=== PATIENT | male | born 1960 | race Caucasian/White ===

== ENCOUNTER 2022-09-09 10:36 | Emergency (ER) | payer OTHER, SELFPAY ==
[2022-09-09 10:45] VITALS: BP 128/84; PULSE 87; RESP 18; TEMP 36.4; O2SAT 97
--- NOTE | 2022-09-09 10:57 | ED.GENADULT ---
HPI - General Adult General Chief complaint: Upper Respiratory Infection Stated complaint: Rt Mouth Pain Time Seen by Provider: 09/09/22 10:50 History of Present Illness HPI narrative: 61 y/o male presented for c/o throat pain for about 3-4 days. Pain is constant, pain 6/10 at rest, worse with swallowing. Also reports hoarse voice. Feels like something is back there. Denies choking or difficulty swallowing, or maintaining secretions. Denies known sick contacts, but states grandkids are around him often. Denies associated sinus congestion, cough, n/v/d/f/c. Not taking anything for symptoms. Hx chewing tobacco x40 years with remote smoking history. Related Data Home Medications Medication Instructions Recorded Confirmed aspirin 81 mg tablet,delayed 81 mg PO DAILY 11/12/19 09/09/22 release (Adult Aspirin Regimen) omega-3 fatty acids 1,000 mg 1,000 mg PO BID 11/12/19 09/09/22 capsule (Fish Oil Concentrate) cholecalciferol (vitamin D3) 50 50 mcg PO DAILY 06/14/22 09/09/22 mcg (2,000 unit) capsule gabapentin 100 mg capsule 200 mg PO DAILY 06/14/22 09/09/22 multivitamin 1 tablet PO DAILY 06/14/22 09/09/22 Allergies Allergy/AdvReac Type Severity Reaction Status Date / Time No Known Allergies Allergy Mild Verified 09/09/22 10:38 Review of Systems Review of Systems: CONSTITUTIONAL: Denies body aches, fever, chills, or sweats. EYES: Denies visual changes, redness, or discharge. ENT: Reports throat pain Denies rhinorrhea, congestion, or otalgia. CARDIOVASCULAR: Denies chest pain, palpitations, or edema. RESPIRATORY: Denies dyspnea. GASTROINTESTINAL: Denies abdominal pain, nausea, vomiting, or diarrhea. SKIN: Denies rash, itching, or wounds. MUSCULOSKELETAL: Denies back pain, joint pain, or myalgia. NEUROLOGIC: Denies headache PMFSH Past Medical History Medical History Anxiety BMI greater than 30 Diabetic peripheral neuropathy Hyperlipidemia with target LDL less than 100 Hypogonadism in male Low vitamin D level Microalbuminuria due to type 2 diabetes mellitus Neuropathy Type 2 diabetes mellitus Surgical History Surgical History S/P rotator cuff repair Family History Family History Other Diabetes mellitus Family history of cardiovascular disease Family history of malignant neoplasm of breast Social History Social History Smoking status: Current every day smoker Tobacco type: smokeless tobacco Smokeless tobacco user: chewing tobacco Alcohol intake: current Substance use: never Exam Narrative: GENERAL: well-appearing, no acute distress. EYES: conjunctivae clear ENT: 0.5cm oval white flat and smooth lesion to right soft palate, with surrounding soft palate erythema and mild swelling. Tonsils enlarged and without exudate. Hoarse voice. Mucous membranes moist. TMs pearly rea with normal light reflex bilaterally; no tragal tenderness. No drooling, no trismus, uvula midline. No tripod positioning, hot potato voice NECK: Supple. No lymphadenopathy CHEST: Clear to auscultation, breath sounds equal. No respiratory distress, speaks in full sentences. HEART: Regular rate and rhythm. No murmur heard. SKIN: Warm, dry, no rash. NEURO: Alert and oriented x3. HENMT: Throat image: 1. location of white oval lesion 2. area of erythema and mild swelling Course Course Emergency Course: Patient is aware of diagnosis, understands and agrees to treatment plan. Anticipatory guidance given. Patient agrees to follow-up as directed and is aware of reasons to seek care at the emergency department. Portions of this record may have been created with voice recognition software Level of Care: Express Care Visit Vital Signs Vital signs: Vital Signs Temperatu
== END 2022-09-09 11:55 | disposition short-term general hospital (02) ==
PROVIDERS: Emergency Provider Nurse Practitioner Family
DX: R07.0 Pain in throat (principal); E11.42 Type 2 diabetes mellitus with diabetic polyneuropathy; E78.5 Hyperlipidemia, unspecified; F17.220 Nicotine dependence, chewing tobacco, uncomplicated; Z79.82 Long term (current) use of aspirin; Z79.84 Long term (current) use of oral hypoglycemic drugs
CPT/HCPCS: 87081; 87880; 99213; G0463

== ENCOUNTER → 2022-12-05 07:52 | Outpatient (CLI) | payer OTHER, SELFPAY ==
--- NOTE | ~2022-12-05 | MR_ITS ---
MRI of the left shoulder Technique: Axial proton-density fat-sat images, coronal proton density fat-sat and T2 fat-sat images, and sagittal T1-weighted and T2 fat-sat images were acquired. Clinical History: Pain Findings: There is severe AC joint degenerative change. There is small subacromial spur as well as [place] productive change at the distal clavicle. Coracoclavicular, coracoacromial, and coracohumeral liga ments appear intact. There is extensive full-thickness tear involving most of the supraspinatus tendon, with fluid-filled gap measuring approximately 2.2 x 2.3 cm in extent. Infraspinatus tendon is intact. Subscapularis ten don is intact with moderate to advanced tendinosis. Tendon of long head of the biceps is intact, with intra-articular tendinosis. There is mild degenerative fraying of superior labrum, without definite detached labral tear. Inferior glenohumeral ligament is intact. No degenerative change of the glenohumeral joint. There is mild fluid in the subacromial/subdeltoid bursa. No muscle atrophy or edema. Impression: Extensive full-thickness tear involving most of the supraspinatus tendon, as detailed above. Background rotator cuff tendinosis, as detailed above. Severe AC joint degenerative change. Mild degenerative fraying of the superior labrum. Reviewed, dictated and finalized at [facility]. Impression: Extensive full-thickness tear involving most of the supraspinatus tendon, as de tailed above. Background rotator cuff tendinosis, as detailed above. Severe AC joint degenerative change. Mild degenerative fraying of the superior labrum.
== END ==
PROVIDERS: PCP Physician Assistant Surgical; Visit Provider Physician Assistant Surgical
DX: M19.012 Primary osteoarthritis, left shoulder (principal)
CPT/HCPCS: 73221

== ENCOUNTER 2023-03-22 08:22 | Outpatient (CLI) | payer OTHER, SELFPAY ==
--- NOTE | 2023-03-22 08:32 | ECG_ITS ---
Measurements Intervals Belle Rate: 87 P: 47 UT: 157 QRS: -3 QRSD: 111 T: 56 QT: 349 QTc: 421 Interpretive Statements SINUS RHYTHM INTRAVENTRICULAR CONDUCTION DELAY POOR R WAVE PROGRESSION, ANTERIOR LEADS BORDERLINE ST-T WAVE ABNORMALITY- INF/HIGH LAT LEADS BASELINE ARTIFACT- I, II, III, AVR, AVL, AVF BORDERLINE ECG NO PREVIOUS ECG AVAILABLE FOR COMPARISON Electronically Signed On 03-22-2023 8:54:27 [employer]ED SPRAYER by Tom Rodríguez D.O.
[2023-03-22 09:06] LABS: Anion Gap 8 mmol/L (8-16); Blood Urea Nitrogen 16 mg/dL (9-20); Calcium 9.3 mg/dL (8.4-10.2); Carbon Dioxide 30 mmol/L (22-30); Chloride 99 mmol/L (98-107); Estimated Glomerular Filt Rate > 60; Glucose 199 mg/dL (65-110); Potassium 4.5 mmol/L (3.4-5.0); Sodium 137 mmol/L (137-145)
== END 2023-03-22 08:23 | disposition home or self-care (01) ==
LOC: ANHSURGERY 08:26
PROVIDERS: Anesthesiology; PCP Family Medicine; Visit Provider Orthopaedic Surgery
DX: E11.9 Type 2 diabetes mellitus without complications (principal); M75.100 Unspecified rotator cuff tear or rupture of unspecified shoulder, not specified as traumatic; Z01.818 Encounter for other preprocedural examination; I45.9 Conduction disorder, unspecified; R94.31 Abnormal electrocardiogram [ECG] [EKG]
CPT/HCPCS: 36415; 80048; 87081; 93005

== ENCOUNTER 2023-03-28 01:46 | Day surgery (SDC) | payer OTHER, SELFPAY ==
[2023-03-19 10:18] VITALS: BMI 29.9
--- NOTE | 2023-03-19 10:30 | PC.NURSE ---
Report to the Outpatient Waiting Room, entrance under the green pavilion located off [facility], at 0830 on 03/28/23. Planned Procedure Time: 1030. Time changes happen often and if your time is changed the preop area will call you the afternoon before. - You and your visitor will be asked to self-screen and do not enter if you have any COVID symptoms. - A mask is optional within the hospital at this time. Patients may have clear liquids (water, carbonated beverages, clear teas, apple juice) until 3 hours prior to surgery with a maximum of 20 ounces. - No food from midnight until time of surgery Take the following medications with a SIP of water the morning of surgery: NONE DO NOT STOP ANY OF YOUR OTHER PRESCRIPTION MEDICATIONS PRIOR TO SURGERY ?EXCEPT THE FOLLOWING Medications to discontinue per physician CALL DR. AMES RE: ASPIRIN Date to take last dose STOP ALL SUPPLEMENTS 3 DAYS PRIOR TO SURGERY Please no make-up, nail japanese, hairspray, perfume, deodorant, or body powder the day of surgery. No jewelry (including any body piercings) or valuables the day of surgery, leave them at home. Please take a shower or bath the night before, or the morning of, surgery with an antibacterial soap. Wear comfortable, loose fitting clothing. - Jewelry must be removed prior to entering the operating room. Rings and piercings that are not removed may be cut off. - The hospital will not accept responsibility for valuables. - Please leave all valuables, including medications, at home the day of surgery. If you are going home after surgery, a licensed straddle bug driver must drive you home. - NO public transportation without another adult if you receive anesthesia. - We recommend that an adult stay with you for 24 hours following discharge. - We also recommend that you do not drive, make important decision, drink alcoholic beverages, or take any drugs that were not prescribed by your health care provider for at least 24 hours after your discharge time. Follow any additional instructions given to you from your surgeon. If you or anyone in your household have experienced Covid symptoms in the past week, please notify your surgeon or the nurse liaison at the phone number below for possible testing. Telephone instructions given to patient and asked if any additional questions and then verbalized understanding. Patient advised to call surgeon office or pre surgery nurse liaison [phone] if any additional questions.
--- NOTE | 2023-03-26 11:49 | PM.IMHP ---
H&P: [facility] History of Present Illness Date/Time: 03/26/23 11:49 Chief Complaint: Rotator cuff tear left shoulder Narrative: 62-year-old male who presents today for thrust be lift shoulder with open rotator cuff repair. Patient is been having pain in left shoulder for approximately 1 year. Did pain is not improved. He had an MRI scan done in November of last year which demonstrated full-thickness tear of the supra and infraspinatus tendons. patient feels that this bone he would like to proceed with repair of the rotator cuff tendon. He had a very large tear in the right shoulder in 2005 that was fixed that needed augmentation. He did well to recovery. He feels this point the symptoms in the left shoulder are bothersome enough on a daily basis he would rather proceed with repair. Review of Systems Review of Systems: All systems reviewed & are unremarkable except as noted in HPI and below PMFSH Past Medical History Medical History Anxiety BMI greater than 30 Diabetic peripheral neuropathy Hyperlipidemia with target LDL less than 100 Hypogonadism in male Low vitamin D level Microalbuminuria due to type 2 diabetes mellitus Neuropathy Type 2 diabetes mellitus Surgical History Surgical History S/P rotator cuff repair Family History Family History Other Diabetes mellitus Family history of cardiovascular disease Family history of malignant neoplasm of breast Social History Social History Smoking status: Current every day smoker Tobacco type: smokeless tobacco Smokeless tobacco user: snuff Alcohol intake: current Drinks per week: 2 Substance use: never Living arrangements: with family Spiritual care concerns: No Meds Home Medications and Allergies Home Medications Medication Instructions Recorded Confirmed Type lancets 33 gauge (OneTotori [place] #200 ea 01/28/19 12/20/22 Rx Plus Lancet) aspirin 81 mg tablet,delayed 81 mg PO DAILY 11/12/19 03/19/23 History release (Adult Aspirin Regimen) omega-3 fatty acids 1,000 mg 1,000 mg PO BID 11/12/19 03/19/23 History capsule (Fish Oil Concentrate) blood sugar diagnostic (OneTouch See Rx Instructions .Route 06/27/21 03/19/23 Rx Ultra Test strips) .COMPLEX #100 strips syringe with needle 3 mL 23 x 1 #50 ea 05/25/22 12/20/22 Rx (BD Luer-Joey Syringe) cholecalciferol (vitamin D3) 50 50 mcg PO DAILY 06/14/22 03/19/23 History mcg (2,000 unit) capsule multivitamin 1 tablet PO DAILY 06/14/22 03/19/23 History lisinopril 5 mg tablet See Rx Instructions .Route 10/20/22 03/19/23 Rx .COMPLEX #90 tabs atorvastatin 20 mg tablet See Rx Instructions .Route 12/20/22 03/19/23 Rx .COMPLEX #90 tabs semaglutide 1 mg/dose (4 mg/3 mL) See Rx Instructions .Route 12/20/22 03/19/23 Rx subcutaneous pen injector (Evince) .COMPLEX #9 mL testosterone cypionate 100 mg/mL 100 mg IM Q14D 90 days #30 mL 12/20/22 03/19/23 Rx intramuscular oil (Depo-Testosterone) metformin 1,000 mg tablet 1,000 mg PO DAILY 03/19/23 03/19/23 History Allergies Allergy/AdvReac Type Severity Reaction Status Date / Time No Known Allergies Allergy Mild Verified 03/19/23 10:15 Exam Narrative: 62-year-old male he is alert healthy. He has [id number] weakness with abduction testing of the left shoulder and mild weakness with external rotation. Mild tenderness over the AC joint. 2+ radial pulse in the wrist. And he is 6 ft tall 232 lb. His left shoulder elevates to 180 external rotates to 75 internally rotates to T8. neck range of motion is full without discomfort. Negative Spurling's maneuver. Resp: Auscultation: clear to auscultation bilaterally Cardio: Rate: regular rate Rhythm: regular rhythm Assessment and Jasson
[2023-03-28] VITALS (7 sets, daily range): BP systolic 86–118; BP diastolic 67–75; PULSE 87–107; RESP 16–20; TEMP 36.1–36.3; O2SAT 92–99
[2023-03-28] MEDS: ACETAMINOPHEN 500 MG TABLET 1000 MG PO (10:40)
[2023-03-28] MEDS: LACTATED RINGERS 1,000 ML 30 ML IV CONT ×2 (11:00→17:57)
[2023-03-28] MEDS: VANCOMYCIN 1,500 MG/NS 500 ML BAG 250 MG IVPB (11:05)
[2023-03-28 11:11] LABS: Glucose Point of Care 132 mg/dl (65-105)
--- NOTE | 2023-03-28 11:37 | SUR.PREOP ---
1120- Updated pt on hour delay in Dr. Robin levine.
--- NOTE | 2023-03-28 13:25 | WPDHPUPDATE1 ---
History and Physical Update Update Date/Time: 03/28/23 13:25 History and Physical has been reviewed, including an updated exam of the patient. There are NO changes in the patient's condition. Risks, benefits, and alternatives have been discussed and questions answered. Patient agrees to proceed with procedure.
[2023-03-28] MEDS: KETOROLAC 15 MG/ML VIAL (*BKC) IV PUSH (13:29)
--- NOTE | 2023-03-28 13:45 | WPDANESEPPF ---
Anes - Initial Pre Proc Eval Procedure: Operation Date: 03/28/23 12:00 Proposed Procedures p Left Shoulder Arthroscopy, Mini Open Rotator Cuff Repair Proceed as Indicated - Vasquez Kelly MD Date/Time: 03/28/23 13:45 Surgeon: Vasquez Kelly MD Pre Op Diagnosis: chronic rotator cuff tear lef shoulder Patient Data Age: 62 Gender: M Height: 1.88 m Weight: 103.4 kg Last Vital Signs Temp 36.3 C L 03/28/23 11:32 Pulse 93 03/28/23 11:32 Resp 16 03/28/23 11:32 BP 114/75 03/28/23 11:32 Pulse Ox 99 03/28/23 11:32 O2 Del Method Room Air 03/28/23 11:32 Allergies Allergy/AdvReac Type Severity Reaction Status Date / Time No Known Allergies Allergy Mild Verified 03/28/23 10:31 Home Medications Medication Instructions Recorded Confirmed Type lancets 33 gauge (OneTouch Delica #200 ea 01/28/19 12/20/22 Rx Plus Lancet) aspirin 81 mg tablet,delayed 81 mg PO DAILY 11/12/19 03/28/23 History release (Adult Aspirin Regimen) omega-3 fatty acids 1,000 mg 1,000 mg PO BID 11/12/19 03/28/23 History capsule (Fish Oil Concentrate) blood sugar diagnostic (OneTouch See Rx Instructions .Route 06/27/21 03/19/23 Rx Ultra Test strips) .COMPLEX #100 strips syringe with needle 3 mL 23 x 1 #50 ea 05/25/22 12/20/22 Rx (BD Luer-Joey Syringe) cholecalciferol (vitamin D3) 50 50 mcg PO DAILY 06/14/22 03/28/23 History mcg (2,000 unit) capsule multivitamin 1 tablet PO DAILY 06/14/22 03/28/23 History lisinopril 5 mg tablet See Rx Instructions .Route 10/20/22 03/28/23 Rx .COMPLEX #90 tabs atorvastatin 20 mg tablet See Rx Instructions .Route 12/20/22 03/28/23 Rx .COMPLEX #90 tabs semaglutide 1 mg/dose (4 mg/3 mL) See Rx Instructions .Route 12/20/22 03/28/23 Rx subcutaneous pen injector (Nubimetrics) .COMPLEX #9 mL testosterone cypionate 100 mg/mL 100 mg IM Q14D 90 days #30 mL 12/20/22 03/28/23 Rx intramuscular oil (Depo-Testosterone) metformin 1,000 mg tablet 1,000 mg PO DAILY 03/19/23 03/28/23 History Laboratory Tests 03/28/23 11:08 POC Capillary Glucose 132 H mg/dl (65-105) Patient hx anesthesia problems: none Family hx anesthesia problems: none Results Review: All pre-operative results and documents have been reviewed as part of the pre-operative evaluation. [facility] Past Medical History Medical History Anxiety BMI greater than 30 Diabetic peripheral neuropathy Hyperlipidemia with target LDL less than 100 Hypogonadism in male Low vitamin D level Microalbuminuria due to type 2 diabetes mellitus Neuropathy Type 2 diabetes mellitus Surgical History Surgical History S/P rotator cuff repair Family History Family History Other Diabetes mellitus Family history of cardiovascular disease Family history of malignant neoplasm of breast Social History Social History Smoking status: Current every day smoker Tobacco type: smokeless tobacco Smokeless tobacco user: snuff Alcohol intake: current Drinks per week: 2 Substance use: never Living arrangements: with family Spiritual care concerns: No Anes - Eval Final PreProcedure Day of Procedure 03/28/23 13:45 Patient weight: overweight Heart: regular rate and rhythm Lungs: decreased breath sounds Airway: Mallampati scale class II Neurological: alert and oriented Last oral intake: >/= 8 hours ASA classification: III Emergent: no Anesthetic plan: proceed Anesthesia type and monitoring: general ETT and standard monitoring Results Review: All pre-operative results and documents have been reviewed as part of the pre-operative evaluation. Informed Consent: The patient's anesthetic plan and its attendant risks and benefits were discussed with the patient/family/PO
[2023-03-28] MEDS: ceFAZolin 2 GM/D5W 50 ML 2 GM/50 ML BAG IVPB (14:12)
--- NOTE | 2023-03-28 14:16 | WPDANESPNB ---
Anes - Peripheral Nerve Block Date/Time: 03/28/23 14:16 I have discussed with the patient/family/POA the placement of a peripheral nerve block for post-operative pain management, including associated risks, benefits, complications, and side effects. Alternative methods of post-operative analgesia were detailed. Questions were solicited and answers provided to the satisfaction of the patient/family/POA. Time-Out: A pre-procedural Time-Out was completed immediately before starting the procedure and confirmed: Patient Identification, Site, Procedure, Patient Position and the Availability of Requisite Equipment. Clinical Indications: Acute post-operative pain management requested by the operative surgeon. Nerve Block Insertion Note Anes-nerve block: interscalene left Patient position: supine Skin prep: chlorhexidine Needle: 22 gauge, stimulating, insulated echogenic needle. Needle length: 50 mm Technique: nerve stimulation lost at (mA) and ultrasound Technique comment: mid2mg [id number] Injectate: bupivacaine 0.5% with epi 5 mcg/ml (30ml no epi) and dexamethasone (mg) (4) Observations: tolerated well Complications: none Procedure start time:: 1353 Procedure end time:: 1400
[2023-03-28] MEDS: ceFAZolin SODIUM 1 GM VIAL (15:01)
[2023-03-28 18:03] LABS: Glucose Point of Care 167 mg/dl (65-105)
--- NOTE | 2023-03-28 18:13 | W.PM.PROC2 ---
Procedure Note - Detailed Date of Procedure 03/28/23 Pre-op Diagnosis chronic rotator cuff tear left shoulder, partial tearing intra-articular portion of long head of biceps. Post-op Diagnosis Same Procedure Performed Arthroscopic labral debridement and anterior acromioplasty, mini open rotator cuff repair left shoulder with Arthrex arthro flex acellular dermal allograft augmentation patch Surgeon Vasquez Kelly MD [employer] [facility] Anesthesia General and Regional Description of Procedure Patient was brought to the operating room and general anesthesia was administered. He received an interscalene block for left shoulder in the preop holding area. He was carefully positioned in the beach chair position head secured in neutral alignment. Left shoulder prepped draped usual fashion. He received 2 g of Ancef in weight based vancomycin preoperatively. All the skin was covered with Ioban except the top portion. Posterior portal was placed. Anterior superior portal placed. Full-thickness tear of supraspinatus into the infraspinatus was noted. Partial tearing of the intra-articular portion of the long of the biceps was noted. The degree of maceration closer to the bicipital groove was too severe to observe and tenodesis was planned. There was maceration of the superior labrum with a flap tear of the posterior superior labrum which was debrided with a motorized shaver. Articular surfaces of the glenoid humeral head looked very good. The arthroscope was placed in the subacromial space an outflow portal placed in the subacromial space. Mid lateral portal was placed. Anterior acromioplasty was performed after release of CA ligament off the anterior acromion and a flat acromial morphology was achieved using the 5 acromionizer bur. Remaining skin was covered with Ioban and the outer gloves were changed. A 4 cm longitudinal incision was made from the top the acromion anteriorly extending over the anterolateral shoulder. Dissection was carried down to the tendinous raphe between the anterior middle heads of the deltoid which was longitudinally incised for a size 4 cm split. We elevated approximately 6 mm of the anterior deltoid for additional exposure a self-retaining retractor was placed. Tear was inspected. The tear was a cruciate tear. Posterior flap mobilized easily we released subdeltoid bursal adhesions with Hussein elevator. The anterior flap was thinner. The tear involved the anterior cable. Full-thickness tear extended into the anterior most aspect of the infraspinatus but then there was a high-grade partial-thickness tear of posterior aspects of the infraspinatus tendon articular side partial-thickness tearing. The aponeurosis over the bicipital groove was incised. The long head of the biceps tendon marked with a 2. Ethibond as a tag stitch to reference this relative to the planned FiberTak anchor. The long head of the biceps was released from the superior labrum. We inserted the arthroscope and debrided the residual stump. The Arthrex whipstitch was then used and with the elbow flexed the pulled the long head of the biceps into the wound and used a whipstitch 4-1/2 inches of long head of biceps and removed the portion of the tendon proximal to the location Ethibond stitch. We placed the FiberTak anchor into the lower portion of the bicipital groove and secured the FiberTak which had excellent purchase and then we shuttled each of the fiber wires through the FiberTak and secured the tenodesis. Our attention was directed to the rotator cuff tear. The greater tuberosity was thoroughly residual granulation tissue with blade scalpel scraping the radiation tissue to the a surface of bleeding cancellous bone. 2 mm bur holes were placed into the medial aspect of the greater tuberosity footprint. The posterior rotator cuff flap which bulb the posterior aspect of the supraspinatus and infraspinatus flaps was advanced anterior the and laterally secured down w
== END 2023-03-28 19:25 | disposition home or self-care (01) ==
PROVIDERS: PCP Family Medicine; Visit Provider Orthopaedic Surgery
PROC: (CPT 29805; principal; 2023-03-28 12:00)
DX: M75.102 Unspecified rotator cuff tear or rupture of left shoulder, not specified as traumatic (principal); M75.82 Other shoulder lesions, left shoulder; G89.18 Other acute postprocedural pain; E78.5 Hyperlipidemia, unspecified; E55.9 Vitamin D deficiency, unspecified; E11.42 Type 2 diabetes mellitus with diabetic polyneuropathy; F41.9 Anxiety disorder, unspecified; Z79.82 Long term (current) use of aspirin; Z79.85 Long-term (current) use of injectable non-insulin antidiabetic drugs; Z79.84 Long term (current) use of oral hypoglycemic drugs; Z79.890 Hormone replacement therapy; F17.220 Nicotine dependence, chewing tobacco, uncomplicated
CPT/HCPCS: 23412; 29822; 64415; 36415; 80048; 82948; 87081; 93005; A9270; J0690; J1100; J1170; J1885; J2250; J2371; J2405; J2704; J3010; J3370; J7120; Q4125

== ENCOUNTER 2023-12-25 12:59 | Outpatient (CLI) | payer OTHER, SELFPAY ==
--- NOTE | ~2023-12-25 | MR_ITS ---
MRI of the left knee Clinical history: Pain Technique: Coronal proton density and proton density-weighted images, sagittal proton-density and T2 fat-sat images, and axial proton-density fat-saturated images were acquired. Findings: ACL is markedly amorphous and poorly delineated, most compatible with acute complete tear. Posterior cruciate ligament is intact. There is probable relative anterior translation of the tibia. Medial collateral ligament and the lateral collateral ligament complex are intact. Popliteus tendon i s intact. No definite lateral meniscus tear seen. There is complex tear of the posterior horn and body of the m edial meniscus, which are relatively diminutive. There is mild chondromalacia of the femoral trochlea. There is mild chondromalacia along the medial f emoral condyle. Bone marrow signals are unremarkable. Extensor mechanism is intact. Moderate joint effusion present. Large multiseptated Bartlett cyst present . Impression: Complete ACL tear, possibly chronic given lack of bone contusions. Correlate with relevant history an d for ACL laxity. Associated relative anterior translation of the tibia. Complex tearing of the posterior horn and body of the medial meniscus, which are diminutive. Mild chondromalacia of the femoral trochlea and medial femoral condyle. Moderate joint effusion with large multiseptated Bartlett's cyst. Reviewed, dictated and finalized at location [facility]. Impression: Complete ACL tear, possibly chronic given lack of bone contusions. Correlate wi th relevant history and for ACL laxity. Associated relative anterior translatio n of the tibia. Complex tearing of the posterior horn and body of the medial meniscus, which ar e diminutive. Mild chondromalacia of the femoral trochlea and medial femoral condyle. Moderate joint effusion with large multiseptated Bartlett's cyst.
== END 2023-12-25 13:00 | disposition home or self-care (01) ==
LOC: MICIMG 13:08
PROVIDERS: PCP Family Medicine
DX: M25.461 Effusion, right knee (principal); S83.232A Complex tear of medial meniscus, current injury, left knee, initial encounter; S83.512A Sprain of anterior cruciate ligament of left knee, initial encounter; X58.XXXA Exposure to other specified factors, initial encounter
CPT/HCPCS: 73721

== ENCOUNTER 2024-01-08 12:21 | Emergency (ER) | payer OTHER, SELFPAY ==
--- NOTE | ~2024-01-08 | XR_ITS ---
EXAMINATION: XR shoulder RT min 2V DATE: 01/08/2024 13:37 INDICATION: Right shoulder pain. Injury. TECHNIQUE: 4 views of right shoulder were obtained. COMPARISON: None. FINDINGS: Alignment is normal. No fracture. There is moderate osteoarthritis of glenohumeral joint an d mild osteoarthritis of acromioclavicular joint. IMPRESSION: 1. Polyarticular osteoarthritis. Reviewed, dictated and finalized at location [facility]
[2024-01-08 12:30] VITALS: BP 118/80; PULSE 100; RESP 17; TEMP 36.6; O2SAT 98
--- NOTE | 2024-01-08 13:10 | ED.UPPEXIN ---
HPI - Extremity Injury (Upper) General Chief Complaint: Extremity Injury, Upper Stated Complaint: I think I tore the ligament in my right bicep Time Seen by Provider: 01/08/24 13:10 Focused HPI: This is a 63 year old male that presents to the ER for an injury sustained 3 days ago. Reports he was lifting a string [place] and felt a pop in his upper arm. Reports decreased ROM due to pain. Denies numbness. GENERAL: Well-appearing, well-nourished, and in no acute distress. HEAD: Normocephalic, atraumatic. CHEST: Clear to auscultation. ?No respiratory distress. HEART: Regular rate and rhythm.? NEURO: ?Alert and oriented x3. Patient screened in triage and initial orders placed.? ?Additional care and disposition to be based upon?diagnostic testing and treatment. Related Data Home Medications Medication Instructions Recorded Confirmed omega-3 fatty acids 1,000 mg 1,000 mg PO BID 11/12/19 07/24/23 capsule (Fish Oil Concentrate) cholecalciferol (vitamin D3) 50 50 mcg PO DAILY 06/14/22 07/24/23 mcg (2,000 unit) capsule multivitamin 1 tablet PO DAILY 06/14/22 07/24/23 magnesium glycinate mg PO 07/24/23 07/24/23 metformin 1,000 mg tablet 2,000 mg PO DAILY 07/24/23 07/24/23 trazodone 50 mg tablet 25 mg PO DAILY 07/24/23 07/24/23 Allergies Allergy/AdvReac Type Severity Reaction Status Date / Time No Known Allergies Allergy Mild Verified 01/08/24 12:21 [facility] Past Medical History Medical History Anxiety BMI greater than 30 Diabetic peripheral neuropathy Hyperlipidemia with target LDL less than 100 Hypogonadism in male Low vitamin D level Microalbuminuria due to type 2 diabetes mellitus Neuropathy Type 2 diabetes mellitus Surgical History Surgical History S/P rotator cuff repair Family History Family History Other Diabetes mellitus Family history of cardiovascular disease Family history of malignant neoplasm of breast Social History Social History (Reviewed 07/24/23 @ 11:16 by LALI Alexander Smoking status: Current every day smoker Tobacco type: smokeless tobacco Smokeless tobacco user: snuff Alcohol intake: current Drinks per week: 2 Substance use: never Living arrangements: with family Spiritual care concerns: No Course Vital Signs Vital signs: Vital Signs Temperature 97.8 F 01/08/24 12:30 Pulse Rate 100 01/08/24 12:30 Respiratory Rate 17 01/08/24 12:30 Blood Pressure 118/80 01/08/24 12:30 Pulse Oximetry 98 01/08/24 12:30 Oxygen Delivery Room Air 01/08/24 12:30 Temperature 97.8 F 01/08/24 12:30 Pulse Rate 100 01/08/24 12:30 Respiratory Rate 17 01/08/24 12:30 Blood Pressure 118/80 01/08/24 12:30 Pulse Oximetry 98 01/08/24 12:30 Oxygen Delivery Room Air 01/08/24 12:30 Discharge Plan Discharge Prescriptions: No Action omega-3 fatty acids [Fish Oil Concentrate] 1,000 mg capsule 1,000 mg PO BID cholecalciferol (vitamin D3) 50 mcg (2,000 unit) capsule 50 mcg PO DAILY multivitamin Tablet 1 tablet PO DAILY trazodone 50 mg tablet 25 mg PO DAILY magnesium glycinate 100 mg magnesium capsule PO testosterone cypionate [Depo-Testosterone] 100 mg/mL oil 100 mg IM Q14D 90 Days Qty: 30 1RF Patient Comments: every other Sunday Rx Instructions: as a single dose acetaminophen [Tylenol Extra Strength] 500 mg tablet 1,000 mg PO Q6H Qty: 100 0RF metformin 1,000 mg tablet 2,000 mg PO DAILY (DME) lancets [OneTouch Delica Plus Lancet] 33 gauge misc See Rx Instructions .ROUTE .MEDSUPPLY Qty: 200 3RF Rx Instructions: use to check BS 2 times daily OneTouch Ultra Test Strip See Rx Instructions .ROUTE .COMPLEX Qty: 100 3RF Dose Instruction: USE TO CHECK BLOOD SUGAR ONE TIME DAILY Rx Instructions: USE TO CHECK BLOOD SUGAR ONE TIME DAILY (DME) BD Luer-Joey Syringe 3 mL 23 x 1 syringe See Rx Instructions .ROUTE .COMPLEX Qty: 50 2RF Dose Instruction: USE ONE NEEDLE TO INJECT TESTOSTERRONE EVERY 14 DAYS Rx Instructions: USE ONE NEEDLE TO INJECT TESTOSTERRONE EVERY 14 DAYS lisinopril 5 mg tablet See Rx Instructions .ROUTE .COMPLEX Qty: 90 3RF Dose Instruction: TAKE 1 TABLET DAILY Rx Instructions: TAKE 1 TABLET DAILY atorvastatin 20 mg tablet See Rx Instructions .ROUTE .COMPLEX Qty: 90 1RF Dose Instruction: TAKE 1 TABLET DAILY Rx Instructions: TAKE 1 TABLET DAILY Ozempic 1 mg/dose (4 mg/3 mL) pen injector See Rx Instructions .ROUTE .COMPLEX Qty: 9 1RF Dose Instruction: INJECT 1MG SUBCUTANEOUSLY WEEKLY Rx Instructions: INJECT 1MG SUBCUTANEOUSLY WEEKLY Follow-up/Referrals: Jose Armando,MD [facility] [Primary Care Provider] -
--- NOTE | 2024-01-08 15:45 | ED.UPPEXIN ---
HPI - Extremity Injury (Upper) General Chief Complaint: Extremity Injury, Upper Stated Complaint: I think I tore the ligament in my right bicep Time Seen by Provider: 01/08/24 13:10 History of Present Illness HPI narrative: patient is a 63-year-old male who presents ER with concerns for biceps injury. Was picking up a yd tool when he felt a pop in his right arm. It is the proximal aspect of the right upper extremity. He is feeling discomfort proximally and has more of a divot and misshapen missed to the bicep. No numbness or tingling. No significant bruising at this time. Call Dr. Carrero office who has operated on him previously and was told that he may need an MRI at some point. Related Data Home Medications Medication Instructions Recorded Confirmed omega-3 fatty acids 1,000 mg 1,000 mg PO BID 11/12/19 07/24/23 capsule (Fish Oil Concentrate) cholecalciferol (vitamin D3) 50 50 mcg PO DAILY 06/14/22 07/24/23 mcg (2,000 unit) capsule multivitamin 1 tablet PO DAILY 06/14/22 07/24/23 magnesium glycinate mg PO 07/24/23 07/24/23 metformin 1,000 mg tablet 2,000 mg PO DAILY 07/24/23 07/24/23 trazodone 50 mg tablet 25 mg PO DAILY 07/24/23 07/24/23 Allergies Allergy/AdvReac Type Severity Reaction Status Date / Time No Known Allergies Allergy Mild Verified 01/08/24 12:21 Review of Systems Constitutional: Constitutional: Reports no additional constitutional complaints Musculoskeletal: Musculoskeletal: Reports arthralgias, Reports joint swelling and Reports muscle cramps Integumentary/Breasts: Skin/Breast: Reports system reviewed and no additional complaints, except as docu Neurologic: Reports system reviewed and no additional complaints, except as documented PMFSH Past Medical History Medical History Anxiety BMI greater than 30 Diabetic peripheral neuropathy Hyperlipidemia with target LDL less than 100 Hypogonadism in male Low vitamin D level 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 HEAD: Normocephalic, atraumatic. HEART: Regular rate and rhythm. Normal peripheral pulses. EXTREMITIES: Normal range of motion. mild discomfort of proximal aspect of the right upper extremity laterally there seems to be a bit more of a divot in this region. Biceps are prominent bilaterally but may be slightly larger on the right. No bruising noted. SKIN: Warm, dry, no rash. NEURO: Alert and oriented x3. PSYCH: Normal mood and affect. Course Course Emergency Course: Discussed with patient that is not typical egg to get an MRI through the ED. Patient did receive an x-ray and we discussed imaging results. Discussed with Orthopedic surgery on-call and will provide a sling for comfort and patient can follow-up in clinic. Patient verbalized understanding of the treatment plan. Vital Signs Vital signs: Vital Signs Temperature 97.8 F 01/08/24 12:30 Pulse Rate 100 01/08/24 12:30 Respiratory Rate 17 01/08/24 12:30 Blood Pressure 118/80 01/08/24 12:30 Pulse Oximetry 98 01/08/24 12:30 Oxygen Delivery Room Air 01/08/24 12:30 Temperature 97.8 F 01/08/24 12:30 Pulse Rate 100 01/08/24 12:30 Respiratory Rate 17 01/08/24 12:30 Blood Pressure 118/80 01/08/24 12:30 Pulse Oximetry 98 01/08/24 12:30 Oxygen Delivery Room Air 01/08/24 12:30 MDM - Extremity Injury (Upper) Imaging Data Radiologist's impression: ITS Impressions Shoulder X-Ray 01/08/24 13:44 IMPRESSION: 1. Polyarticular osteoarthritis. Discharge Plan Discharge Clinical Impression: Injury of tendon of biceps Patient Disposition: Home, Self-Care Condition: Stable Instructions: Repairs of the Biceps and Triceps Tendons (DC) Additional Instructions: There is concern that you may have a tear of the long head of the biceps. Please follow-up with orthopedic surgery. Wear sling as needed for comfort. Take Tylenol and ibuprofen as needed for pain. Avoid any lifting with the right upper extremity to prevent any additional injury. Prescriptions: No Action omega-3 fatty acids [Fish Oil Concentrate] 1,000 mg capsule 1,000 mg PO BID cholecalciferol (vitamin D3) 50 mcg (2,000 unit) capsule 50 mcg PO DAILY multivitamin Tablet 1 tablet PO DAILY trazodone 50 mg tablet 25 mg PO DAILY magnesium glycinate 100 mg magnesium capsule PO testosterone cypionate [Depo-Testosterone] 100 mg/mL oil 100 mg IM Q14D 90 Days Qty: 30 1RF Patient Comments: every other Sunday Rx Instructions: as a single dose acetaminophen [Tylenol Extra Strength] 500 mg tablet 1,000 mg PO Q6H Qty: 100 0RF metformin 1,000 mg tablet 2,000 mg PO DAILY (DME) lancets [OneTouch Delica Plus Lancet] 33 gauge misc See Rx Instructions .ROUTE .MEDSUPPLY Qty: 200 3RF Rx Instructions: use to check BS 2 times daily OneTouch Ultra Test Strip See Rx Instructions .ROUTE .COMPLEX Qty: 100 3RF Dose Instruction: USE TO CHECK BLOOD SUGAR ONE TIME DAILY Rx Instructions: USE TO CHECK BLOOD SUGAR ONE TIME DAILY (DME) BD Luer-Joey Syringe 3 mL 23 x 1 syringe See Rx Instructions .ROUTE .COMPLEX Qty: 50 2RF Dose Instruction: USE ONE NEEDLE TO INJECT TESTOSTERRONE EVERY 14 DAYS Rx Instructions: USE ONE NEEDLE TO INJECT TESTOSTERRONE EVERY 14 DAYS lisinopril 5 mg tablet See Rx Instructions .ROUTE .COMPLEX Qty: 90 3RF Dose Instruction: TAKE 1 TABLET DAILY Rx Instructions: TAKE 1 TABLET DAILY atorvastatin 20 mg tablet See Rx Instructions .ROUTE .COMPLEX Qty: 90 1RF Dose Instruction: TAKE 1 TABLET DAILY Rx Instructions: TAKE 1 TABLET DAILY Ozempic 1 mg/dose (4 mg/3 mL) pen injector See Rx Instructions .ROUTE .COMPLEX Qty: 9 1RF Dose Instruction: INJECT 1MG SUBCUTANEOUSLY WEEKLY Rx Instructions: INJECT 1MG SUBCUTANEOUSLY WEEKLY Follow-up/Referrals: Vasquez Kelly MD [Physician] - 1 Week Jose Armando,MD [facility] [Primary Care Provider] -
[2024-01-08 15:55] VITALS: BP 120/68; PULSE 90; RESP 18; TEMP 36.7; O2SAT 98
== END 2024-01-08 15:58 | disposition home or self-care (01) ==
PROVIDERS: Emergency Provider Emergency Medicine; PCP Family Medicine
DX: S46.201A Unspecified injury of muscle, fascia and tendon of other parts of biceps, right arm, initial encounter (principal); F41.9 Anxiety disorder, unspecified; E11.42 Type 2 diabetes mellitus with diabetic polyneuropathy; E78.5 Hyperlipidemia, unspecified; Z79.84 Long term (current) use of oral hypoglycemic drugs; X50.0XXA Overexertion from strenuous movement or load, initial encounter
CPT/HCPCS: 73030; 99283